=== PATIENT | female | born 1975 | race Caucasian/White ===

== ENCOUNTER 2019-01-24 17:09 | Emergency (ER) | payer OTHER ==
[2019-01-24 17:34] VITALS: O2SAT 98
[2019-01-24] MEDS ORDERED: Augmentin 875-125 Tablet PO ONE (17:41)
[2019-01-24] MEDS ORDERED: Tylenol #3 Tablet PO ONE (17:41)
[2019-01-24] MEDS ORDERED: Augmentin 875-125 Tablet ONE (17:48)
[2019-01-24] MEDS ORDERED: Tylenol #3 Tablet ONE (17:48)
--- NOTE | 2019-01-24 17:48 | ERPHSYRPT ---
- History of Present Illness Time Seen by Provider: 01/24/19 17:35 Source: patient Exam Limitations: clinical condition Patient Subjective Stated Complaint: left ear pain, went to [facility] yesterday and they gave her a steroid shot but it hurts worse now, hurts inside the ear, the outer ear, her jaw and her teeth Triage Nursing Assessment: Pt c/o of left ear pain, vitals wnl, rates pain 4/10 after taking 800 mg of Ibuprofen, denies any other issues at this time Physician History: PATIENT COMPLAINS OF SEVERE LEFT EARACHE, DRAINAGE FROM LEFT EAR CANAL. DENIES SORETHROAT, HEADACHE, FEVER OR CHILLS Severity: severe ENT Location: ear (L) Prearrival Treatment: no prearrival treatment Associated Symptoms: ear pain (L) Allergies/Adverse Reactions: hydrocodone Allergy (Verified 01/24/19 17:35) - Review of Systems Eyes: No Symptoms Ears, Nose, & Throat: Ear Pain, Ear Discharge Respiratory: No Symptoms Cardiac: No Symptoms Neurological: No Symptoms Psychological: No Symptoms - Past Medical History Pertinent Past Medical History: No - Past Surgical History Past Surgical History: Yes Gastrointestinal: Cholecystectomy - Social History Smoking Status: Current every day smoker How long have you smoked: 20 years Exposure to second hand smoke: Yes Drug Use: none Patient Lives Alone: No - Female History Hx Last Menstrual Period: menapause Hx Now: No - Nursing Vital Signs Nursing Vital Signs: Initial Vital Signs Temperature 98.3 F 01/24/19 17:27 Pulse Rate 93 H 01/24/19 17:27 Blood Pressure 144/80 01/24/19 17:27 O2 Sat by Pulse Oximetry 98 01/24/19 17:27 Pain Scale Pain Intensity 4 - Physical Exam General Appearance: mild distress Eye Exam: bilateral eye: normal inspection, PERRL, EOMI Ear Exam: right ear: auricle normal, canal normal, TM normal, left ear: erythema (MARKED SWELLING WITH WHITE DISCHARGE LEFT CANAL, MARKED TENDERNESS UPON PALPATION OF TRAGUS OF AURICLE), other (TENDERNESS OVER LEFT TMJ) Nasal Exam: normal inspection Throat Exam: normal, pharynx normal Neck Exam: normal inspection, non-tender SpO2 Interpretation: normal SpO2: 98 Ordered Tests: Medication Summary Discontinued Medications Generic Name Dose Route Start Last Admin Trade Name Freq PRN Reason Stop Dose Admin Acetaminophen/Codeine Phosphate 2 tab 01/24/19 17:41 01/24/19 17:52 Tylenol #3 Tablet PO 01/24/19 17:42 2 tab STAT ONE Administration Acetaminophen/Codeine Phosphate Confirm 01/24/19 17:48 Tylenol #3 Tablet Administered 01/24/19 17:49 Dose 2 tab .ROUTE .STK-MED ONE Amoxicillin/Clavulanate Potassium 875 mg 01/24/19 17:41 01/24/19 17:52 Augmentin 875-125 Tablet PO 01/24/19 17:42 875 mg STAT ONE Administration Amoxicillin/Clavulanate Potassium Confirm 01/24/19 17:48 Augmentin 875-125 Tablet Administered 01/24/19 17:49 Dose 875 mg .ROUTE .STK-MED ONE - Progress Progress Note: 01/24/19 17:45 ADMINISTERED TLENOL #3, 2 TABLETS, AUGMENTIN 875MG ORALLY Counseled pt/family regarding: diagnosis, need for follow-up - Departure Departure Disposition: Home Clinical Impression: LEFT OTITIS EXTERNA Condition: Stable Critical Care Time: No Referrals: FRANK ALLEN MD [Primary Care Provider] - Additional Instructions: ANTIBIOTIC AUGMENTIN 875 MG TWICE DAILY FOR 10 DAYS. TYLENOL #3 EVERY 4 HOURS FOR PAIN. APPLY CIPRODEX OTIC SUSPENSION 3 DROPS INTO LEFT EAR CANAL TWICE DAILY FOR 7 DAYS. CONSULT YOUR PRIMARY CARE PROVIDER FOR FOLLOWUP IN 1 WEEK. RETURN TO EMERGENCY ROOM FOR ONSET OF FEVER OR INCREASING PAIN. Prescriptions: Amox Tr/Potass Clav. 875 mg [Augmentin 875-125 Tablet] 1 each PO BID #20 tablet Ciprofloxacin HCl/Dexameth [Ciprodex Otic Suspension] 3 drops OT BID #7.5 drops.susp Codeine Phosphate/APAP #3 [Tylenol #3 Tablet] 1 tab PO Q4-6HPRN PRN #16 tablet PRN Reason: Pain
[2019-01-24 18:06] VITALS: BP 131/77; PULSE 84
== END 2019-01-24 18:09 | disposition home or self-care (01) ==
LOC: ED 17:09
DX: H60.92 Unspecified otitis externa, left ear (principal)
CPT/HCPCS: 99283; A9270-GY

== ENCOUNTER 2021-04-26 06:55 | Day surgery (SDC) | payer OTHER ==
[2021-04-26] MEDS ORDERED: CEFAZOLIN 2 GM-D5W BAG** 2 GM/50 ML ML IV SCH (07:00)
[2021-04-26] MEDS ORDERED: Lactated Ringers 1,000 ML IV SCH ×2 (07:00)
[2021-04-26] MEDS ORDERED: Lactated Ringers 1,000 ML IV ONE (07:02)
[2021-04-26] MEDS ORDERED: CEFAZOLIN 2 GM-D5W BAG** 2 GM/50 ML ML IV ONE (07:02)
[2021-04-26] MEDS ORDERED: SUBLIMAZE 100 MCG/2 ML ONE (08:39)
[2021-04-26] MEDS ORDERED: Decadron 4 MG INJ ONE (09:00)
[2021-04-26] MEDS ORDERED: Zofran 4 MG/2 ML VIAL ONE (09:00)
[2021-04-26] MEDS ORDERED: Xylocaine-Mpf 2% 5 Ml Vial ONE (09:00)
[2021-04-26] MEDS ORDERED: DIPRIVAN 200 MG/20 ML IV ONE (09:00)
[2021-04-26 10:01] VITALS: BP 154/97; PULSE 76; O2SAT 99
--- NOTE | 2021-04-27 08:14 | OP ---
SURGERY DATE/TIME: 04/26/2021 0838 PREOPERATIVE DIAGNOSIS: Abnormal uterine bleeding. POSTOPERATIVE DIAGNOSIS: Abnormal uterine bleeding. PROCEDURE: Hysteroscopy, D&C with attempted NovaSure ablation. SURGEON: Mathew Barron D.O. OPTICAL COATING TECHNICIAN: Maddy Avalos surgical garment assembler. ANESTHESIA: General. ESTIMATED BLOOD LOSS: Minimal. COMPLICATIONS: None. INDICATIONS: The risks, benefits, indications and alternatives of the procedure were reviewed with the patient prior to the procedure. The patient understood the risk of infection, bleeding, bowel injury, bladder injury, ureteral injury, uterine perforation and thromboembolic disorder associated with this procedure however desires to have this surgery as a possible means to alleviate her current medical condition. DESCRIPTION OF PROCEDURE AND FINDINGS: At this point the patient is taken to the operating room, given general sedation, placed in dorsal lithotomy position. Prepped and draped in the usual sterile fashion. A weighted speculum is then placed in the patient's vagina and the anterior lip of the cervix was grasped with a single tooth tenaculum. Endocervical dilators were advanced through the endocervical canal as a means to dilate the cervix and the uterus was sounded to approximately 7 to 8 cm. From this point a 5 mm hysteroscope was then placed in toward the fundus of the uterus where visualization revealed to be normal with no gross abnormalities. From this point the hysteroscope was then removed from the uterine cavity. At this point a curette was then placed into the fundus of the uterus and curettage performed in all quadrants of the uterus retrieving a moderate amount of endometrial tissue. From this point hemostasis was obtained. At this point NovaSure was then introduced into the fundus of the uterus where it measured approximately 6 cm and with several different measurements and seven different attempts the machine would not engage and the machine would not turn on for ablation. Another instrument was used as well in attempt to ablate the uterine lining however after engaging the NovaSure in the uterine cavity and retracting approximately 1 cm the machine again would not engage and turn on at this point. From this point the procedure was abandoned and the instrument was removed from the patient's uterine cavity. From this point all instruments were removed from the patient's vaginal region. The patient was then taken out of the dorsal lithotomy position, was taken out of anesthesia and was then taken to the recovery room in stable condition. All instruments and laps were accounted for x2.
== END 2021-04-26 10:08 | disposition home or self-care (01) ==
LOC: SDC 06:55
PROVIDERS: ATTEND Obstetrics & Gynecology
DX: N93.9 Abnormal uterine and vaginal bleeding, unspecified (principal)
CPT/HCPCS: 84703; J0690; J1100; J2405; J2704; J3010

== ENCOUNTER 2022-01-22 12:35 | Emergency (ER) | payer OTHER ==
[2022-01-22 12:45] VITALS: BP 138/95; PULSE 77; O2SAT 95
[2022-01-22] MEDS ORDERED: TORAdol 30 mg Injection IM ONE (13:21)
[2022-01-22] MEDS ORDERED: Rocephin 1000 MG INJ IM ONE (13:21)
[2022-01-22] MEDS ORDERED: Decadron 4 MG PO ONE (13:22)
--- NOTE | 2022-01-22 13:28 | ERPHSYRPT ---
- History of Present Illness Source: patient Exam Limitations: no limitations Patient Subjective Stated Complaint: pt here for pain to right since , was seen at clinic and given ear drops Triage Nursing Assessment: pt alert, walked in, resp easy, skin w/d/p. face mask in place, has swelling to outer ear, no drainage Physician History: 46 yo wf w R otalgia x3 days. Pt seen in clinic yesterday and started on Cipro/steroid drops. Pt has a h/o recurrent ear infections. Pain is severe and worse w helix movement. She denies otic discharge/fever/cough/coryza/trauma. Timing/Duration: gradual onset ENT Location: ear (R) Prearrival Treatment: prescription meds Associated Symptoms: ear pain (R), change in hearing, hearing loss, No ear pain (L), No cough, No fever, No chills, No dizziness, No drooling, No ear drainage, No facial pain/swelling, No headache, No jaw pain, No malaise, No motion sickness, No nasal congestion/drainage, No epistaxis, No nasal foreign body, No neck pain, No poor fluid intake, No poor solids intake, No ringing of ears, No swollen glands, No sinus infection, No sore throat, No tooth pain, No difficulty swallowing Allergies/Adverse Reactions: hydrocodone Allergy (Verified 04/26/21 07:05) Home Medications: Esomeprazole Magnesium [Nexium] 20 mg PO DAILY 04/25/21 [History] Tranexamic Acid 1 ea DAILY 01/22/22 [History] Hx Influenza Vaccination/Date Given: No Hx Pneumococcal Vaccination/Date Given: No Immunizations Up to Date: Yes Travel Risk - International Travel Have you traveled outside of the country in past 3 weeks: No - Coronavirus Screening Are you exhibiting any of the following symptoms?: No - Vaccine Status Have you recieved a Covid-19 vaccination: Yes [employer]: Room 77 - Vaccination Dates Dates if Unknown: ? - Review of Systems Constitutional: No Symptoms Eyes: No Symptoms Ears, Nose, & Throat: No Symptoms, Ear Pain, Hearing Changes, No Ear Discharge Respiratory: No Symptoms Cardiac: No Symptoms Abdominal/Gastrointestinal: No Symptoms Genitourinary Symptoms: No Symptoms Musculoskeletal: No Symptoms Skin: No Symptoms Neurological: No Symptoms Psychological: No Symptoms Endocrine: No Symptoms Hematologic/Lymphatic: No Symptoms Immunological/Allergic: No Symptoms - Past Medical History Pertinent Past Medical History: No Neurological History: No Pertinent History ENT History: No Pertinent History Cardiac History: No Pertinent History Respiratory History: No Pertinent History Endocrine Medical History: No Pertinent History Musculoskeletal History: No Pertinent History GI Medical History: No Pertinent History History: No Pertinent History Psycho-Social History: No Pertinent History Female Reproductive Disorders: Abnormal Uterine Bleeding - Past Surgical History Past Surgical History: Yes Neuro Surgical History: No Pertinent History Cardiac: No Pertinent History Respiratory: No Pertinent History Gastrointestinal: Cholecystectomy Genitourinary: No Pertinent History Musculoskeletal: No Pertinent History Female Surgical History: Dilation & Curettage - Social History Smoking Status: Current every day smoker How long have you smoked: 20 years Exposure to second hand smoke: Yes Drug Use: none Patient Lives Alone: No Significant Family History: no pertinent family hx - Female History Hx Last Menstrual Period: month ago Hx Now: No - Nursing Vital Signs Nursing Vital Signs: Initial Vital Signs Temperature 97.2 F 01/22/22 12:41 Pulse Rate 77 01/22/22 12:41 Respiratory Rate 18 01/22/22 12:41 Blood Pressure 138/95 01/22/22 12:41 O2 Sat by Pulse Oximetry 95 01/22/22 12:41 Pain Scale Pain Intensity 8 WNL - Physical Exam General Appearance: no apparent distress (In pain) Eye Exam: bilateral eye: normal inspection, PERRL, EOMI Ear Exam: right ear: swelling (Marked edema/erythema of canal/Unable to see TM/Marked pain when helix pulled), left ear: auricle normal, canal normal, TM normal Nasal Exam: normal inspection Throat Exam: normal, pharynx normal, No dental tenderness Neck Exam: normal inspection, non-tender, supple, full range of motion, trachea midline, No JVD, No limited range of motion, No lymphadenopathy (R), No lymphadenopathy (L), No stiff neck, No thyromegaly, No Brudzinski's sign, No carotid bruit, No Kernig's sign, No meningismus Cardiovascular/Respiratory Exam: normal breath sounds, regular rate/rhythm, heart sounds normal Abdominal Exam: non-tender, soft, No no organomegaly Neurologic Exam: alert, oriented x 3, cooperative, family services coordinator II-XII nml as tested, normal mood/affect, nml cerebellar function, nml station & gait, sensation nml Skin Exam: normal color, warm, dry SpO2 Interpretation: normal SpO2: 95 O2 Delivery: Room Air - Course Nursing assessment & vital signs reviewed: Yes Ordered Tests: Medication Summary Discontinued Medications Generic Name Dose Route Start Last Admin Trade Name Zeferino PRN Reason Stop Dose Admin Ceftriaxone Sodium 1,000 mg 01/22/22 13:21 01/22/22 13:50 Ceftriaxone Sodium 1000 Mg Inj Vial IM 01/22/22 13:22 1,000 mg STAT ONE Administration Ceftriaxone Sodium Confirm 01/22/22 13:48 Ceftriaxone Sodium 1000 Mg Inj Vial Administered 01/22/22 13:49 Dose 1,000 mg .ROUTE .STK-MED ONE Dexamethasone 10 mg 01/22/22 13:22 01/22/22 13:54 Dexamethasone 4 Mg Tablet PO 01/22/22 13:23 10 mg STAT ONE Administration Ketorolac Tromethamine 60 mg 01/22/22 13:21 01/22/22 13:50 Ketorolac Tromethamine 30 Mg/Ml Inj IM 01/22/22 13:22 60 mg STAT ONE Administration Ketorolac Tromethamine Confirm 01/22/22 13:48 Ketorolac Tromethamine 30 Mg/Ml Inj Administered 01/22/22 13:49 Dose 60 mg .ROUTE .STK-MED ONE Lidocaine HCl Confirm 01/22/22 13:48 Lidocaine Hcl 1% 20 Ml Mdv 20 Ml Ml Administered 01/22/22 13:49 Dose 3 ml .ROUTE .STK-MED ONE - Progress Progress: improved Progress Note: 01/22/22 13:29 60mg IM Toradol 1gm IM rocephin 10mg po Decadron 01/22/22 21:57 Pharmacy later called and stated that Ciprodex was >$200 wo alternative antibiotic-steroid combo, so Floxin otic substituted Counseled pt/family regarding: diagnosis, need for follow-up - Departure Departure Disposition: Home Clinical Impression: Otitis externa, Otitis media Condition: Stable Critical Care Time: No Referrals: OVIDIO BROWN NP [Primary Care Provider] - Follow up/PCP as directed Instructions: Outer Ear Infection (DC) Additional Instructions: Follow up with your family MD or ENT early next week 10drops to right ear twice a day for 10 days Augmentin twice a day for 10 days Decadron once a day for 3 days(Continue tomorrow) Return to ER for increasing pain or temperature greate than 100.5 Prescriptions: Amox Tr/Potass Clav. 875 mg [Augmentin 875-125 Tablet] 875 mg PO BID #20 tablet Ciprofloxacin HCl/Dexameth [Ciproflox-Dexameth Otic Susp] 10 drops OT BID 10 Days #7.5 ml Dexamethasone 4 mg [Decadron 4 MG] 4 mg PO DAILY #3 tablet
[2022-01-22] MEDS ORDERED: TORAdol 30 mg Injection ONE (13:48)
[2022-01-22] MEDS ORDERED: XYLOCAINE 1% HCL 20 ML MDV ONE (13:48)
[2022-01-22] MEDS ORDERED: Rocephin 1000 MG INJ ONE (13:48)
== END 2022-01-22 14:30 | disposition home or self-care (01) ==
LOC: ED 12:35
DX: H60.91 Unspecified otitis externa, right ear (principal); H66.91 Otitis media, unspecified, right ear; H92.01 Otalgia, right ear; Z72.0 Tobacco use; Z79.899 Other long term (current) drug therapy; Z79.52 Long term (current) use of systemic steroids
CPT/HCPCS: 96372; 99284; J0696; J1885; A9270-GY

== ENCOUNTER 2024-09-04 09:54 | Day surgery (SDC) | payer OTHER ==
[2024-09-04 10:15] VITALS: RESP 18
[2024-09-04] MEDS ORDERED: Pepcid 20 MG VIAL IV ONE (11:18)
[2024-09-04] MEDS: Pepcid 20 MG VIAL IV ONE (11:19)
[2024-09-04] MEDS ORDERED: Versed 2 MG/2 ML Injection ONE (11:30)
[2024-09-04] MEDS ORDERED: DIPRIVAN 200 MG/20 ML IV ONE (11:30)
[2024-09-04 12:27] VITALS: TEMP 97.6; O2SAT 98
[2024-09-04 12:31] VITALS: BP 118/75; PULSE 56
--- NOTE | 2024-09-05 17:59 | OP ---
SURGERY DATE/TIME: 09/04/2024 5952-5287 PREOPERATIVE DIAGNOSES: 1) Heartburn. 2) Positive Cologuard. POSTOPERATIVE DIAGNOSES: 1) Gastritis with erosion. 2) Fair preparation. 3) Colon polyp. PROCEDURES: 1) Esophagogastroduodenoscopy with biopsy. 2) Colonoscopy with polypectomy, cold forceps. SURGEON: Simon Kaplan MD INDICATIONS: Patient is a 48-year-old female who presents with positive Cologuard, no prior colonoscopy, and heartburn despite PPI. Discussion was had with patient on the risk of bleeding, perforation, and she elected to proceed. FINDINGS: 1) Severe gastritis with erosion. 2) Fair preparation. 3) A 2 mm hyperplastic-appearing polyp in the rectosigmoid. DESCRIPTION OF PROCEDURE AND FINDINGS: Patient was brought to the endoscopy suite. Routinely positioned, prepared, and time-out performed. IV anesthesia induced by Anesthesia. The gastroscope was inserted through the mouth and advanced to the third portion of the duodenum. Duodenum is normal in appearance. The stomach does have an area in the body of severe gastritis with erosion, superficial, that antrum biopsy was taken for H pylori and even a biopsy was taken of the erosion. Both sent for pathology. Retroflexion normal. Esophagus was normal. GE junction normal. Stomach suctioned out. Scope was withdrawn. The digital rectal exam, external exam just with some skin tags and mild external hemorrhoid without thrombosis. Colonoscope is inserted and advanced to the terminal ileum. The cecum confirmed by the terminal ileum, ileocecal valve, and appendiceal orifice. The preparation was Aronchick fair preparation. Cecum was very tedious but it eventually is able to be suctioned out mostly with over 90% of the mucosa visualized though it was tedious. Transverse was better. Descending was better. Certainly over 6-minute withdrawal time is performed. There is a 2 mm hyperplastic-appearing polyp in the rectosigmoid taken with cold forceps, sent for Pathology. Retroflexion satisfactory. The patient tolerated the procedure well and was taken to Recovery in stable condition. RECOMMENDATIONS: Follow up in the office in 2 to 4 weeks. Protonix 40 p.o. b.i.d. and Carafate 1 g q.i.d., then probably de-escalate. For the colonoscopy with the suboptimal preparation and positive Cologuard, probably would recommend a 2-year repeat colonoscopy as small lesions could be missed.
== END 2024-09-04 12:38 | disposition home or self-care (01) ==
LOC: SDC 09:54
PROVIDERS: ATTEND Surgery
DX: K29.70 Gastritis, unspecified, without bleeding (principal); R12 Heartburn; R19.5 Other fecal abnormalities; K63.5 Polyp of colon; K64.4 Residual hemorrhoidal skin tags
CPT/HCPCS: 93005; J2250; J2704